=== PATIENT | male | born 1975 | race Caucasian/White ===

== ENCOUNTER 2017-07-08 09:44 | Emergency (ER) | payer OTHER ==
[~2017-07-08] VITALS: Ht 154.9 cm; Wt 91.2 kg
[~2017-07-08 09:44] MED LIST: LISINOPRIL10 MG PO; MEDROLDOSEPACK PO; PEPCID40 MG PO; VISTARIL 25 MG25 M1 PO
[2017-07-08 10:03] LABS: ABSOLUTE LYMPHOCYTES 1.4 thou/uL (0.8-5.3); ABSOLUTE MONOCYTES 0.4 thou/uL (0.0-1.2); ABSOLUTE NEUTROPHILS 3.3 thou/uL (1.6-8.1); BASOPHILS 0.5 %; EOSINOPHILS 0.8 %; HEMATOCRIT 45.6 % (42.0-52.0); LYMPHOCYTES 26.6 %; MCH 33.9 pg (26.0-34.0); MCHC 35.1 g/dL (28.0-37.0); MCV 96.6 fL (80.0-100.0); MONOCYTES 8.4 %; MPV 8.1 fl. (7.2-11.1); NUCLEATED RBCS 0 /100WBC; PLATELET COUNT* 266 thou/uL (150-400); POLYS 63.7 %; RBC 4.72 mil/uL (4.50-6.00); RDW-CV 13.3 % (10.5-14.5); WBC 5.2 thou/uL (4.0-11.0)
[2017-07-08 10:07] LABS: ANION GAP 14 mmol/L (7-16); BUN 24 mg/dL (7-18); CALCIUM 9.3 mg/dL (8.5-10.1); CHLORIDE 100 mmol/L (98-107); CO2 23 mmol/L (21-32); CREATININE 1.5 mg/dL (0.6-1.3); GLUCOSE 134 mg/dL (70-99); POTASSIUM 3.5 mmol/L (3.5-5.1); SODIUM 137 mmol/L (136-145)
[2017-07-08 10:15] LABS: ALKALINE PHOSPHATASE 57 U/L (46-116); LIPASE 111 U/L (73-393); SGOT 29 U/L (15-37); SGPT 52 U/L (30-65); TOTAL BILIRUBIN 0.6 mg/dL (<0.1-1.0); TOTAL PROTEIN 7.7 g/dL (6.4-8.2); TROPONIN-I LEVEL <0.06 ng/mL (<0.06)
[2017-07-08 11:35] LABS: URINE BILIRUBIN NEGATIVE (Negative); URINE BLOOD NEGATIVE (Negative); URINE CLARITY CLEAR; URINE COLOR YELLOW; URINE GLUCOSE-RANDOM NEGATIVE (Negative); URINE KETONES NEGATIVE (Negative); URINE LEUKOCYTES-REFLEX NEGATIVE (Negative); URINE NITRITE-REFLEX NEGATIVE (Negative); URINE PROTEIN NEGATIVE (Negative); URINE SPECIFIC GRAVITY 1.025 (1.005-1.030); URINE UROBILINOGEN 0.2 E.U./dl (0.2-1.0)
[2017-07-08 12:00] VITALS: BP 105/72
--- NOTE | 2017-07-08 15:38 | EKG ---
[place] [address] ELECTROCARDIOGRAM REPORT Name: BRITTANIE CONSTANTINO [id number] Admission: 07/08/17 Attend Phys: Discharge: 07/08/17 Date of : 73 Report #: [id number] THIS REPORT FOR: //name// [facility] ED Test Date: 2017-07-08 Test Time: 09:47:57 Pat Name: BRITTANIE CONSTANTINO Department: Room: Gender: M Well Treatment Offsider: SOWMYA : 1975 Requested By: Elizabeth Hamilton Order Number: [id number] MD: Simon Perea Measurements Intervals [place] Rate: 69 P: 11 WV: 172 QRS: -14 QRSD: 89 T: -10 QT: 399 QTc: 428 Interpretive Statements Sinus rhythm Borderline T abnormalities, inferior leads ST elev, probable normal early repol pattern No previous ECG available for comparison Electronically Signed On 07-08-2017 15:37:51 CDT by Simon Perea [email or web address] <ELECTRONICALLY SIGNED> By: Simon Perea MD, [facility] 07/08/17 1537 6 Simon Perea MD, FACC /EPI
== END 2017-07-08 12:01 | disposition home or self-care (01) ==
LOC: M.ERS 09:44
PROVIDERS: Personal Emergency Response Attendant
DX: R07.89 Other chest pain (principal); N19 Unspecified kidney failure; I10 Essential (primary) hypertension; Z88.0 Allergy status to penicillin